=== PATIENT | female | born 1980 | race Caucasian/White ===

== ENCOUNTER 2021-10-01 17:59 | Emergency (ER) | payer SELFPAY ==
--- NOTE | ~2021-10-01 | CT_ITS ---
EXAMINATION: CT abdomen pelvis wo con DATE: 10/01/2021 21:35 INDICATION: Right flank pain. Nausea. Hematuria. TECHNIQUE: Computed tomography (CT) of the abdomen and pelvis was performed without intravenous contr ast. Automated exposure control and iterative reconstruction technique were employed. The dose-length product was 1306.64 mGy-cm. COMPARISON: None. FINDINGS: The visualized portions of the lung bases demonstrate mild atelectasis. No pleural effusion . The heart size is normal. No pericardial effusion. There is diffuse hepatic steatosis. There are ch anges of cholecystectomy. The spleen, pancreas, adrenal glands, and kidneys are normal. There is no u rolithiasis. There are no dilated loops of bowel. There are changes of appendectomy. There are no pat hologically enlarged lymph nodes. There is no free intraperitoneal fluid. There is mild thoracic spon dylosis and moderate lumbar spondylosis. IMPRESSION: 1. No urolithiasis. Reviewed, dictated and finalized at location A. IMPRESSION: 1. No urolithiasis.
[2021-10-01 18:04] VITALS: BP 136/98; PULSE 89; RESP 20; TEMP 36.9; O2SAT 100
--- NOTE | 2021-10-01 18:28 | ED.FEMALEGU ---
HPI - Female Genitourinary General Chief complaint: Urogenital-Female Stated complaint: right flank pain, blood in urine Time Seen by Provider: 10/01/21 18:15 History of Present Illness HPI Narrative: Patient is a 40-year-old female here for evaluation of right flank pain over the past 2 weeks. Patient states the pain is severe in nature, is intermittent, and is now radiated into her right groin region. Additionally notes urinary complaints over the past 2 weeks, with burning sensation and also hematuria. She was seen at a different emergency department, was diagnosed with kidney infection, was started on Augmentin. She went back to the same ED a week later due to continued symptoms, and her antibiotic was switched to Keflex. She notes that she has been compliant with this medicine, but states her symptoms have been getting worse and not better. Additionally notes feeling weak, nauseous, and notes daily episodes of vomiting. States today when she stood up, she had to hold onto an object to prevent herself from falling, which prompted her ED evaluation. She denies any chest pain, leg swelling, fevers or chills. Related Data Allergies Allergy/AdvReac Type Severity Reaction Status Date / Time iohexol Allergy Rash Verified 10/01/21 20:35 [From contrast - CT, X-RAY] morphine Allergy Itching Verified 10/01/21 21:09 NSAIDS (Non-Steroidal Allergy Swelling Verified 10/01/21 18:46 Anti-Inflamma of Lip/Tongue/Throat Review of Systems Review of Systems: Gen.: Denies fevers or chills Eyes: Denies eye pain or visual change ENT: Denies congestion Respiratory: Denies shortness of breath or cough CV: Denies chest pain or palpitations GI: Denies abdominal pain nausea, emesis or diarrhea reports hematuria and burning. Denies , urgency, frequency Musculoskeletal: Reports back pain. Denies back pain or muscle pain Neuro: Denies numbness, tingling, weakness or focal weakness Skin: Denies rash Except as documented, all other systems reviewed and negative Exam Narrative: APPEARANCE: Uncomfortable appearing. Well nourished. Head: Normocephalic and atraumatic. EYES: PERRLA/EOMI, conjunctivae clear NOSE: No nasal drainage EARS: External ear normal in appearance THROAT: Oropharynx is clear. Mucous membranes are moist. NECK: Supple. No adenopathy, no masses. RESPIRATORY: Airway patent, respirations nonlabored. Clear to auscultation bilaterally, no rales, rhonchi, wheezing. CARDIOVASCULAR: Regular rate and rhythm without murmurs, rubs, or gallops. ABDOMINAL: Normoactive bowel sounds. Soft, nontender, nondistended. No rebound tenderness or guarding. MUSCULOSKELETAL: Right CVA tenderness. Extremities are warm and well-perfused. Moves all extremities well. No edema. NEURO: Normal speech. No focal neurologic deficits. SKIN: Skin is warm and dry. No rashes. PSYCHIATRIC: Normal affect/mood. Course Vital Signs Vital signs: Vital Signs Temperature 98.5 F 10/01/21 18:04 Pulse Rate 89 10/01/21 18:04 Respiratory Rate 20 10/01/21 18:04 Blood Pressure 136/98 H 10/01/21 18:04 Pulse Oximetry 100 10/01/21 18:04 Oxygen Delivery Room Air 10/01/21 18:04 Temperature 97.9 F 10/01/21 18:40 Pulse Rate 75 10/01/21 23:13 Respiratory Rate 20 10/01/21 23:13 Blood Pressure 113/86 10/01/21 23:13 Pulse Oximetry 100 10/01/21 23:13 Oxygen Delivery Room Air 10/01/21 18:40 MDM - Female Genitourinary MDM Narrative Medical decision making narrative: 40-year-old female here for evaluation of continued urinary symptoms and flank pain over the past several weeks after 2 rounds of outpatient antibiotics. Here she is nontoxic-appearing, with normal vital signs. No leukocytosis on work-up, UA with ketones, leuks, blood. Considered pyelonephritis, UTI, kidney stone. Doubt glomerular disease given lack of edema and presence of pain. Abdomen without obvious cause of patient's symptoms. We will give her dose of ceftr
[2021-10-01 18:40] VITALS: BP 129/98; PULSE 83; RESP 18; TEMP 36.6; O2SAT 98
--- NOTE | 2021-10-01 19:10 | PC.NURSE ---
attempted IV unsuccessful
--- NOTE | 2021-10-01 19:48 | PC.NURSE ---
Attempts from 2 RNs for IV unsuccessful. 3rd RN to attempt with ultrasound
[2021-10-01 20:11] LABS: Basophils Percent Auto 0.5 % (0.2-1.2); Eosinophils Absolute Auto 0.2 K/mm3 (0-0.3); Eosinophils Percent Auto 3.5 % (0-4.4); Hemoglobin 11.5 g/dL (12.0-15.0); Immature Granulocyte Absolute 0.01 K/mm3 (0.00-0.031); Immature Granulocyte Percent A 0.2 % (0-0.5); Lymphocytes Absolute Auto 1.58 K/mm3 (0.9-3.2); Lymphocytes Percent Auto 28.7 % (18.3-44.2); Mean Corpuscular HGB Conc 33.8 g/dl (32-36); Mean Corpuscular Hemoglobin 29.7 pg (26-34); Mean Corpuscular Volume 87.9 fl (80-100); Mean Platelet Volume 10.3 fl (7.4-10.4); Monocytes Absolute Auto 0.5 K/mm3 (0.1-0.6); Monocytes Percent Auto 9.3 % (2.6-8.5); Neutrophils Absolute Auto 3.2 K/mm3 (1.3-6.7); Neutrophils Percent Auto 57.8 % (45.5-73.1); Platelet Count Result 284 k/mm3 (150-375); Red Blood Count 3.87 M/mm3 (4.2-5.4); Red Cell Distribution Width 13.6 % (11.5-14.5); White Blood Count 5.5 K/mm3 (4.5-10.0)
[2021-10-01 20:23] LABS: Alanine Aminotransferase 20 U/L (6-35); Albumin Level 4.4 g/dL (3.5-5.1); Alkaline Phosphatase 76 U/L (38-126); Anion Gap 11 mmol/L (8-16); Aspartate Amino Transferase 35 U/L (14-36); Bilirubin,Total 0.6 mg/dL (0.2-1.3); Blood Urea Nitrogen 12 mg/dL (7-17); Calcium 9.4 mg/dL (8.4-10.2); Carbon Dioxide 25 mmol/L (22-30); Chloride 99 mmol/L (98-107); Estimated CRCL calculation 101 ml/min; Estimated Glomerular Filt Rate > 60; Glucose 98 mg/dL (65-110); Potassium 4.2 mmol/L (3.4-5.0); Sodium 135 mmol/L (137-145)
[2021-10-01] MEDS: ONDANSETRON INJ 4 MG/2 ML VIAL IV PUSH (20:32)
[2021-10-01] MEDS: SODIUM CHLORIDE 0.9% IV 1,000 ML 999 ML IV CONT ×2 (20:32→22:30)
--- NOTE | 2021-10-01 20:37 | PC.NURSE ---
While explaining CT with contrast, Pt reported prior reaction of blistering rash and woke up with many doctor surrounding me . PA Carmen aware, changing scan to WITHOUT contrast.
[2021-10-01 20:52] LABS: Appearance Urine Slightly Cloudy (Clear); Bilirubin Urine 1+ (Negative); Blood Urine 3+ (Negative); Color Urine Yellow (Yellow); Glucose Urine UA Negative (Negative); Ketones Urine 1+ mg/dL (Negative); Leukocyte Esterase Ur 2+ LEU/UL (Negative); Nitrate Urine Negative (Negative); Protein Urine 1+ mg/dL (Negative); Specific Grav Ur 1.025 (1.001-1.035)
[2021-10-01] MEDS: MORPHINE SULFATE (*CRX) 4 MG/ML INJ IV PUSH (20:53)
[2021-10-01 20:57] LABS: Bacteria Urine Trace /hpf; Mucus Urine Rare /lpf; RBC Urine >75 /hpf (0-2); Squamous Epithelial Cell Urine Many /hpf (Few); WBC Urine >75 /hpf
[2021-10-01 21:01] LABS: Add Urine Microscopic? YES
--- NOTE | 2021-10-01 21:01 | PC.NURSE ---
Morphine administered for pain. Pt immediately felt systemically itchy, no rash visable at this time, VSS. PA Carmen aware, ordering benadryl
[2021-10-01] MEDS: diphenhydrAMINE HCl INJ 50 MG/ML VIAL 25 MG IV PUSH (21:03)
--- NOTE | 2021-10-01 21:09 | PC.NURSE ---
Morphine added to allergy list due to itching. Called CT scan, instructed to come in about 15 minutes. Benadryl administered, pt reports itching improving at this time. VSS, no respiratory distress.
[2021-10-01 21:38] VITALS: PULSE 75; RESP 17; O2SAT 100
[2021-10-01 21:46] VITALS: PULSE 76; RESP 19; O2SAT 100
[2021-10-01 22:00] VITALS: PULSE 74; RESP 18; O2SAT 100
[2021-10-01 23:13] VITALS: BP 113/86; PULSE 75; RESP 20; O2SAT 100
== END 2021-10-01 23:14 | disposition home or self-care (01) ==
PROVIDERS: Physician Assistant; Emergency Provider General Practice
DX: N39.0 Urinary tract infection, site not specified (principal)
CPT/HCPCS: 36415; 74176; 80053; 81001; 81025; 85025; 87086; 87088; 96361; 96365; 96375; 99284; J0696; J1200; J2270; J2405; J7030